=== PATIENT | female | born 1980 | race Hispanic/Latino ===

== ENCOUNTER 2018-01-27 06:04 | Emergency (ER) | payer BC ==
[~2018-01-27] VITALS: Ht 172.7 cm; Wt 94.3 kg
[~2018-01-27 06:04] MED LIST: MINOCYCLINE HCL50 MG PO
--- NOTE | 2018-01-27 06:54 | Diagnostic Imaging Report ---
Exam: AP and lateral view of the right tibia and fibula Indication: Exercising and hit crossbar on jaramillo, deep cut Comparison: None Findings: No fracture, lytic or blastic lesion. No radiopaque foreign bodies. Small vascular phleboliths. Laceration anterior upper jaramillo. Impression: Laceration without underlying radiopaque foreign body or fracture. Signed by: Dr. Debby Raymond M.D. on 01/27/2018 6:51 AM
[2018-01-27] MEDS ORDERED: TETANUS/DIPHTHERIA TOX ADULT 0.5 ML SYR IM STA (07:24)
[2018-01-27] MEDS ORDERED: LIDOCAINE 2%/ EPINEPHRINE 20ML MDV INJ ONE (07:30)
== END 2018-01-27 07:33 | disposition home or self-care (01) ==
LOC: FSED 06:04
DX: S81.811A Laceration without foreign body, right lower leg, initial encounter (principal); W22.8XXA Striking against or struck by other objects, initial encounter; Y92.39 Other specified sports and athletic area as the place of occurrence of the external cause
CPT/HCPCS: 12002; 73590; 90471; 90714; 99284; J2001

== ENCOUNTER 2018-01-28 21:20 | Emergency (ER) | payer BC ==
[~2018-01-28] VITALS: Ht 172.7 cm; Wt 94.3 kg
--- OUTSIDE RECORDS SUMMARY | 2018-01-28 21:24 | XMS REPORT ---
Author Author [facility] Address Unknown Phone Unavailable Care Team Providers Care Fixed Capital Clerk Name Role Phone Nicolás DEAN Unavailable Unavailable Problems This patient has no known problems. Allergies, Adverse Reactions, Alerts This patient has no known allergies or adverse reactions. Medications This patient has no known medications. Results Test Description Test Time Test Comments Text Results Atomic Results Result Comments TIB/FIB 2VW RT - HOPD 2018-01-27 06:49:00 [place] [address] Patient Name: XIOMARA SANTOYO MR #: [id number] : 1980 Age/Sex: 37/F Req #: [id number] Adm Physician: Ordered by: NICOLA DEAN MD Report #: [id number] Location: [facility] Room/Bed: Procedure: [id number] HOPD/TIB/FIB 2VW RT - HOPD Exam Date: 01/27/18 Exam Time: 0630 REPORT STATUS: Signed Exam: AP and lateral view of the right tibia and fibula Indication: Exercising and hit crossbar on jaramillo, deep cut Comparison: None Findings: No fracture, lytic or blastic lesion. No radiopaque foreign bodies. Small vascular phleboliths. Laceration anterior upper jaramillo. Impression: Laceration without underlying radiopaque foreign body or fracture. Signed by: Dr. Rosibel Raymond M.D. on 01/27/2018 6:51 AM Dictated By: ROSIBEL RAYMOND MD 0 Transcribed By: BIRGIT on 01/27/18650 COPY TO: NICOLA DEAN MD
[2018-01-28] MEDS ORDERED: SODIUM CHLORIDE FLUSH 10 ML SYR INJ PRN (22:00)
--- NOTE | 2018-01-28 23:21 | Diagnostic Imaging Report ---
EXAM: CT ABD/PEL WITH CONTRAST-HOPD DATE: 01/28/2018 12:00 AM INDICATION: Abdominal pain COMPARISON: None TECHNIQUE: The abdomen and pelvis were scanned using a multidetector helical scanner. Coronal and sagittal reformations were obtained. CT low dose techniques were utilized, as applicable. IV Contrast: 100 ml Isovue 300/370 FINDINGS: Slightly degraded by motion artifact. LOWER THORAX: No consolidations LIVER/BILIARY: No masses. No ductal dilatation. GALLBLADDER: Surgically absent SPLEEN: Unremarkable PANCREAS: Unremarkable ADRENALS: No nodules KIDNEYS: No suspicious renal masses. No hydronephrosis. GI TRACT: Focal wall thickening of the distal descending colon associated with inflamed diverticula. Mild stasis with fecalization of contents within several small bowel loops. No evidence of bowel obstruction. Normal appendix. VESSELS: Unremarkable PERITONEUM/RETROPERITONEUM: Trace free fluid. No free air. LYMPH NODES: No lymphadenopathy REPRODUCTIVE ORGANS/BLADDER: Incidental dominant 4 cm left ovarian cyst or follicle is otherwise unremarkable. Contracted bladder. SOFT TISSUES: Postsurgical changes along the anterior abdominal wall. BONES: No suspicious bone lesions. IMPRESSION: Acute uncomplicated diverticulitis involving the distal descending colon. Signed by: Dr Yolanda Escalante MD on 01/28/2018 11:18 PM
[2018-01-28] MEDS ORDERED: METRONIDAZOLE 500MG/NS 100ML 100 ML IV STA (23:32)
[2018-01-28] MEDS ORDERED: LEVOFLOXACIN 500MG/D5W 100ML 100 ML IV ONE (23:45)
[2018-01-29 01:28] VITALS: BP 138/84
== END 2018-01-29 01:35 | disposition home or self-care (01) ==
LOC: FSED 21:20
DX: K57.32 Diverticulitis of large intestine without perforation or abscess without bleeding (principal)
CPT/HCPCS: 74177; 80048; 80076; 81003; 81025; 85025; 99284

== ENCOUNTER 2020-04-27 05:52 | Emergency (ER) | payer BC, OTHER ==
[~2020-04-27] VITALS: Ht 172.7 cm; Wt 94.3 kg
[2020-04-27] MEDS ORDERED: SODIUM CHLORIDE 0.9% 1000ML 1,000 ML IV STA (06:26)
[2020-04-27] MEDS ORDERED: ONDANSETRON HCL INJ 2MG/ML 2ML 2 MG/ML VIAL IV PRN (06:30)
[2020-04-27] MEDS ORDERED: MORPHINE SULFATE INJ 4 MG/ML INJ 1ML IV PRN (06:30)
[2020-04-27] MEDS ORDERED: SODIUM CHLORIDE 0.9% 1000ML 1,000 ML ONE (06:37)
[2020-04-27] MEDS ORDERED: MORPHINE SULFATE INJ 2 MG/ML SYR ONE (06:37)
[2020-04-27 06:50] LABS: BASOPHILS # (AUTO) 0.1 (0.0-0.1); BASOPHILS % 0.6 % (0.0-1.0); EOSINOPHILS # (AUTO) 0.2 (0.0-0.4); EOSINOPHILS % 2.2 % (0.0-6.0); HEMATOCRIT 35.8 % (34.2-44.1); HEMOGLOBIN 12.1 g/dL (12.0-16.0); LYMPHOCYTES # (AUTO) 2.7 (1.0-3.2); LYMPHOCYTES % 34.8 % (18.0-39.1); MEAN CORPUSCULAR HEMOGLOBIN 31.3 pg (28-32); MEAN CORPUSCULAR HGB CONC 33.8 g/dL (31-35); MEAN CORPUSCULAR VOLUME 92.7 fL (81-99); MONOCYTES # (AUTO) 0.6 (0.2-0.8); MONOCYTES % 8.1 % (4.4-11.3); NEUTROPHILS # (AUTO) 4.2 (2.1-6.9); PLATELET COUNT 268 x10e3/uL (140-360); RED BLOOD COUNT 3.86 x10e6/uL (3.6-5.1); RED CELL DISTRIBUTION WIDTH 12.6 % (11.7-14.4)
[2020-04-27 06:55] LABS: ALANINE AMINOTRANSFERASE 12 IU/L (0-55); ALBUMIN 3.6 g/dL (3.5-5.0); ALBUMIN/GLOBULIN RATIO 0.9 (0.8-2.0); ALKALINE PHOSPHATASE 58 IU/L (40-150); ANION GAP 12.6 mmol/L (8-16); BLOOD UREA NITROGEN 16 mg/dL (7-26); BUN/CREATININE RATIO 18 (6-25); CALCIUM 8.7 mg/dL (8.4-10.2); CARBON DIOXIDE 25 mmol/L (22-29); CHLORIDE 107 mmol/L (98-107); CREATININE, SERUM 0.87 mg/dL (0.57-1.11); EST GLOMERULAR FILTRATION RATE > 60 ML/MIN (60-); GLUCOSE 100 mg/dL (74-118); POTASSIUM 3.6 mmol/L (3.5-5.1); SODIUM 141 mmol/L (136-145)
[2020-04-27 07:09] LABS: CLARITY,URINE CLEAR (CLEAR); COLOR,URINE YELLOW (YELLOW); KETONES,URINE NEGATIVE (NEGATIVE); LEUKOCYTE ESTERASE ,URINE NEGATIVE (NEGATIVE); NITRITE,URINE NEGATIVE (NEGATIVE); PROTEIN,URINE DIPSTICK NEGATIVE (NEGATIVE); URINE UROBILINOGEN 0.2 mg/dL (0.2 - 1)
[2020-04-27 07:23] LABS: BACTERIA,URINE RARE /HPF; EPITHELIAL CELLS,URINE FEW /LPF; RBC,URINE 0-5 /HPF (0-5); WBC,URINE (MAN) 0-5 /HPF (0-5)
[2020-04-27] MEDS ORDERED: SODIUM CHLORIDE 0.9% 50ML 50 ML ONE (07:34)
[2020-04-27] MEDS ORDERED: IOPAMIDOL 370 MG/ML 200 ML INFUS..BTL INJ ONE (07:34)
[2020-04-27] MEDS ORDERED: ULTRAM50 MG PO (11:21)
[2020-04-27 11:52] VITALS: BP 99/62
== END 2020-04-27 12:00 | disposition home or self-care (01) ==
LOC: ER 06:05
DX: R10.31 Right lower quadrant pain (principal); N83.202 Unspecified ovarian cyst, left side
CPT/HCPCS: 36415; 74177; 76830; 76856; 80053; 81001; 84702; 85025; 93976; 99284; J2270; J2405; J7030; Q9967